=== PATIENT | male | born 1955 | race Caucasian/White ===

== ENCOUNTER 2018-10-10 18:53 | Emergency (ER) | payer BC ==
[~2018-10-10] VITALS: Ht 172.7 cm; Wt 68.2 kg
[~2018-10-10 18:53] MED LIST: ALTACE10 MG PO; ASPIRIN E.C.325 MG PO; CALTRATE-600 W600 MG PO; CARVEDILOL PO; CENTRUM1 TAB PO; COZAAR100 MG PO; FOLIC ACID PO; FOLIC ACID1 MG PO; HCTZ 25MG25 MG PO; NORVASC 5MG5 MG/TAB PO
[2018-10-10 19:01] VITALS: TEMP 97.7
[2018-10-10] MEDS ORDERED: VOLTAREN 50MG T50 MG PO (19:25)
[2018-10-10] MEDS ORDERED: ASPIRIN 81M81 MG/TA2 PO (19:26)
[2018-10-10] MEDS ORDERED: NORCO 325 MG-51 TAB PO (20:43)
[2018-10-10] MEDS ORDERED: CEPHALEXIN500 M1 PO (20:43)
[2018-10-10 21:09] VITALS: BP 130/83; PULSE 71
== END 2018-10-10 21:05 | disposition home or self-care (01) ==
LOC: COL.ER 18:53
DX: R04.0 Epistaxis (principal); I10 Essential (primary) hypertension; F17.210 Nicotine dependence, cigarettes, uncomplicated; Z79.82 Long term (current) use of aspirin

== ENCOUNTER 2018-10-11 08:48 | Emergency (ER) | payer BC ==
[~2018-10-11] VITALS: Ht 172.7 cm; Wt 68.2 kg
[~2018-10-11 08:48] MED LIST changes: +ASPIRIN 81M81 MG/TA2 PO; +CEPHALEXIN500 M1 PO; +NORCO 325 MG-51 TAB PO; +VOLTAREN 50MG T50 MG PO
[2018-10-11 09:22] LABS: HEMATOCRIT 34.8 % (42.0-52.0); HEMOGLOBIN 12.2 g/dl (13.5-18.0); MEAN CELL VOLUME 99 fl (80.0-100.0); MEAN CORPUSCULAR HEMOGLOBIN 35 pg (27.0-31.0); MEAN CORPUSCULAR HGB CONC 35 g/dl (33.0-37.0); MEAN PLATELET VOLUME 9.9 fl (7.4-10.4); PLATELET COUNT 223 K/mm3 (130-400); RED BLOOD COUNT 3.52 M/mm3 (4.20-5.60); REDCELL DISTRIBUTION WIDTH-CV 12.2 % (11.5-14.5)
[2018-10-11 09:29] LABS: INR 1.1 (0.8-3.0); PROTHROMBIN TIME 12.6 SECONDS (9.7-12.8)
[2018-10-11 09:35] LABS: ALBUMIN 4.4 gm/dL (3.5-5.0); BILIRUBIN,TOTAL 0.7 mg/dL (0.0-1.0); CALCIUM 9.2 mg/dL (8.4-10.2); CREATININE, serum 0.54 mg/dL (0.66-1.25); POTASSIUM 4.1 mmol/L (3.4-5.0); TOTAL PROTEIN 7.9 gm/dL (6.4-8.2)
[2018-10-11 09:44] LABS: BAND 6 % (0-10); LYMPHOCYTE 21 % (20.0-51.0); NEUTROPHILS 67 % (42.0-75.2); PLATELET ESTIMATE NORMAL (NORMAL)
[2018-10-11 10:17] VITALS: BP 130/82; PULSE 72
== END 2018-10-11 10:17 | disposition home or self-care (01) ==
LOC: COL.ER 08:48
PROVIDERS: Family Medicine
DX: R04.0 Epistaxis (principal); D64.9 Anemia, unspecified; I10 Essential (primary) hypertension; F17.210 Nicotine dependence, cigarettes, uncomplicated

== ENCOUNTER 2018-10-12 12:36 | Emergency (ER) | payer BC ==
[~2018-10-12] VITALS: Ht 172.7 cm; Wt 68.2 kg
[2018-10-12 12:42] VITALS: TEMP 97.8
[2018-10-12 13:30] LABS: BASO % 0.2 % (0.0-2.0); EOS # 0.1 (0.0-0.7); EOS % 0.6 % (0-4.0); HEMOGLOBIN 10.3 g/dl (13.5-18.0); LYMPH # 2.1 (1.2-3.4); LYMPH % 25.6 % (20.0-51.0); MEAN CELL VOLUME 99 fl (80.0-100.0); MEAN CORPUSCULAR HEMOGLOBIN 35 pg (27.0-31.0); MEAN CORPUSCULAR HGB CONC 35 g/dl (33.0-37.0); MEAN PLATELET VOLUME 10.2 fl (7.4-10.4); MONO # 1.1 (0.1-0.6); MONO % 13.2 % (1.7-9.3); PLATELET COUNT 218 K/mm3 (130-400); RED BLOOD COUNT 2.93 M/mm3 (4.20-5.60); REDCELL DISTRIBUTION WIDTH-CV 12.1 % (11.5-14.5)
[2018-10-12 13:32] LABS: HEMATOCRIT 29.1 % (42.0-52.0)
[2018-10-12 13:36] LABS: PROTHROMBIN TIME 11.8 SECONDS (9.7-12.8)
[2018-10-12 13:38] LABS: PARTIAL THROMBOPLASTIN TIME 29.4 SECONDS (26.0-37.0)
[2018-10-12 13:41] LABS: ALBUMIN 4.4 gm/dL (3.5-5.0); BILIRUBIN,TOTAL 0.7 mg/dL (0.0-1.0); CALCIUM 9.3 mg/dL (8.4-10.2); CREATININE, serum 0.65 mg/dL (0.66-1.25); POTASSIUM 4.2 mmol/L (3.4-5.0); TOTAL PROTEIN 7.7 gm/dL (6.4-8.2)
[2018-10-12 14:36] VITALS: BP 141/90; PULSE 88
== END 2018-10-12 14:37 | disposition home or self-care (01) ==
LOC: COL.ER 12:36
PROVIDERS: Emergency Medicine
DX: R04.0 Epistaxis (principal); I10 Essential (primary) hypertension

== ENCOUNTER → 2021-12-02 | Outpatient (CLI) | payer BC | LOC: COL.RAD 06:58 | DX: M53.3 Sacrococcygeal disorders, not elsewhere classified (principal) ==

== ENCOUNTER → 2022-04-12 | Outpatient (CLI) | payer MEDICARE, BC | LOC: COL.RAD 13:30 | DX: Z12.2 Encounter for screening for malignant neoplasm of respiratory organs (principal); F17.210 Nicotine dependence, cigarettes, uncomplicated ==

== ENCOUNTER 2023-05-13 18:57 | Emergency (ER) | payer MEDICARE, BC ==
[~2023-05-13] VITALS: Ht 170.2 cm; Wt 64.5 kg
[2023-05-13 19:02] VITALS: TEMP 97.9
[2023-05-13] MEDS ORDERED: CEPHALEXIN500 M1 PO (20:01)
[2023-05-13 20:03] VITALS: BP 130/76; PULSE 60
== END 2023-05-13 20:40 | disposition home or self-care (01) ==
LOC: COL.ER 18:57
DX: S68.113A Complete traumatic metacarpophalangeal amputation of left middle finger, initial encounter (principal); F17.200 Nicotine dependence, unspecified, uncomplicated; Z88.1 Allergy status to other antibiotic agents
CPT/HCPCS: J0690